=== PATIENT | male | born 1965 | race Hispanic/Latino ===

== ENCOUNTER 2022-07-24 09:57 | Outpatient (CLI) | payer SELFPAY | END 2022-07-24 09:58 | disposition home or self-care (01) | LOC: RAD 09:57 | PROVIDERS: ATTEND Nurse Practitioner Family | DX: M25.562 Pain in left knee (principal); M25.462 Effusion, left knee; M25.552 Pain in left hip; M87.9 Osteonecrosis, unspecified ==

== ENCOUNTER 2022-07-24 13:49 | Emergency (ER) | payer SELFPAY ==
[2022-07-24 15:08] LABS: #Monocytes 0.9 thou/uL (0.11-0.59); #Neutrophils 8.5 thou/uL (1.40-6.50); %Basophils 0.2 % (0.0-1.0); %Eosinophils 0.1 % (0.0-10.0); %Lymphocytes 13.5 % (21.0-51.0); %Monocytes 8.2 % (0.0-10.0); %Neutrophils 76.8 % (42.0-75.0); Hemoglobin 12.7 g/dL (14.0-18.0); Mean Corpuscular HGB CONC 33.5 g/dL (32.0-36.0); Mean Corpuscular Hemoglobin 29.1 pg (27.0-31.0); Mean Corpuscular Volume 86.9 fl (78.0-98.0); Mean Platelet Volume 10.7 fL (7.4-10.4); Platelet Count 200 10x3/uL (130-400); RBC Distribution Width 13.2 % (11.5-14.5); Red Blood Cell (RBC) Count 4.36 mill/uL (4.70-6.10); White Blood Cell (WBC) Count 11.1 10x3/uL (4.8-10.8)
[2022-07-24 15:40] LABS: Anion Gap 12 mmol/L (10-20); BUN (Urea Nitrogen) 19 mg/dL (8.4-25.7); Calc. Creatinine Clearance 0 mL/min (70-130); Calcium 8.6 mg/dL (7.8-10.44); Carbon Dioxide 22 mmol/L (22-29); Chloride 105 mmol/L (98-107); Estimated GFR 105; Glucose 146 mg/dL (70-105); Potassium 3.9 mmol/L (3.5-5.1); Sodium 135 mmol/L (136-145)
== END 2022-07-24 16:31 | disposition home or self-care (01) ==
LOC: ERS 13:49
DX: M87.9 Osteonecrosis, unspecified (principal); D72.829 Elevated white blood cell count, unspecified; F17.210 Nicotine dependence, cigarettes, uncomplicated
CPT/HCPCS: 36415; 80048; 85025; 99283

== ENCOUNTER 2022-11-01 15:32 | Inpatient (IN) | payer OTHER, SELFPAY ==
[~2022-11-01 15:32] MED LIST: Iopamidol-370 76% 500 ML MDV (1 ML CHARGE) ONE
[2022-11-01 16:04] LABS: #Neutrophils 9.8 thou/uL (1.40-6.50); %Basophils 0.2 % (0.0-1.0); %Eosinophils 0.3 % (0.0-10.0); %Monocytes 7.3 % (0.0-10.0); %Neutrophils 72.9 % (42.0-75.0); Hematocrit 39.7 % (42.0-52.0); Hemoglobin 13.2 g/dL (14.0-18.0); Mean Corpuscular HGB CONC 33.2 g/dL (32.0-36.0); Mean Corpuscular Hemoglobin 29.5 pg (27.0-31.0); Mean Corpuscular Volume 88.6 fl (78.0-98.0); Mean Platelet Volume 10.4 fL (7.4-10.4); Platelet Count 168 10x3/uL (130-400); RBC Distribution Width 13.2 % (11.5-14.5); Red Blood Cell (RBC) Count 4.48 mill/uL (4.70-6.10); White Blood Cell (WBC) Count 13.5 10x3/uL (4.8-10.8)
[2022-11-01 16:31] LABS: ALT (SGPT) 30 U/L (8-55); AST (SGOT) 17 U/L (5-34); Albumin 3.6 g/dL (3.5-5.0); Alkaline Phosphatase 52 U/L (40-110); Anion Gap 11 mmol/L (10-20); BUN (Urea Nitrogen) 20 mg/dL (8.4-25.7); Bilirubin, Total 0.5 mg/dL (0.2-1.2); Calc. Creatinine Clearance 0 mL/min (70-130); Calcium 8.4 mg/dL (7.8-10.44); Carbon Dioxide 25 mmol/L (22-29); Chloride 102 mmol/L (98-107); Estimated GFR 107; Globulin 2.5 g/dL (2.4-3.5); Glucose 107 mg/dL (70-105); Lipase 56 U/L (8-78); Potassium 4.1 mmol/L (3.5-5.1); Protein, Total 6.1 g/dL (6.0-8.3); Sodium 134 mmol/L (136-145)
[2022-11-01 16:35] LABS: Troponin I Less than 0.010 ng/mL (< 0.028)
[2022-11-01] MEDS ORDERED: Aspirin Chewable 81 MG TAB ONE (16:40)
[2022-11-01] MEDS ORDERED: Nitroglycerin 0.4 MG TAB 1 EACH ONE (16:40)
[2022-11-01 16:58] LABS: T4 5.92 ug/dL (4.87-11.72); Thyroid Stimulating Hormone 1.1404 uIU/mL (0.35-4.94)
[2022-11-01] MEDS ORDERED: fentaNYL 50 mcg/mL 1 mL Vial ONE (18:33)
[2022-11-01] MEDS ORDERED: Ondansetron PF 4 MG/2 ML Vial IVP PRN (21:23)
[2022-11-01] MEDS ORDERED: Ondansetron ODT 4 MG TAB PO PRN (21:23)
[2022-11-01] MEDS ORDERED: Nitroglycerin 0.4 MG TAB (25 Tab Bottle) SL PRN (21:23)
[2022-11-01] MEDS ORDERED: Acetaminophen 650 MG Suppository PR PRN (21:23)
[2022-11-01 22:17] VITALS: BMI 27.6
[2022-11-01] MEDS: Morphine 4 MG/ML VIAL SLOW IVP PRN (22:45)
[2022-11-01 23:52] LABS: Troponin I Less than 0.010 ng/mL (< 0.028)
[2022-11-02 05:16] LABS: #Eosinphils 0.1 thou/uL (0.0-0.7); #Monocytes 0.7 thou/uL (0.11-0.59); #Neutrophils 8.8 thou/uL (1.40-6.50); %Basophils 0.2 % (0.0-1.0); %Eosinophils 0.5 % (0.0-10.0); %Lymphocytes 13.2 % (21.0-51.0); %Monocytes 5.7 % (0.0-10.0); %Neutrophils 76.9 % (42.0-75.0); Hematocrit 36.7 % (42.0-52.0); Hemoglobin 12.1 g/dL (14.0-18.0); Mean Corpuscular Hemoglobin 29.7 pg (27.0-31.0); Mean Corpuscular Volume 90.2 fl (78.0-98.0); Mean Platelet Volume 10.8 fL (7.4-10.4); Platelet Count 145 10x3/uL (130-400); RBC Distribution Width 13.3 % (11.5-14.5); Red Blood Cell (RBC) Count 4.07 mill/uL (4.70-6.10); White Blood Cell (WBC) Count 11.5 10x3/uL (4.8-10.8)
[2022-11-02 05:41] LABS: Anion Gap 9 mmol/L (10-20); BUN (Urea Nitrogen) 13 mg/dL (8.4-25.7); Calc. Creatinine Clearance 148 mL/min (70-130); Calcium 8.1 mg/dL (7.8-10.44); Carbon Dioxide 28 mmol/L (22-29); Chloride 98 mmol/L (98-107); Estimated GFR 112; Glucose 106 mg/dL (70-105); Potassium 3.8 mmol/L (3.5-5.1); Sodium 131 mmol/L (136-145)
[2022-11-02] MEDS: Morphine 4 MG/ML VIAL SLOW IVP PRN ×3 (05:45→23:21)
[2022-11-02] MEDS: Aspirin Chewable 81 MG TAB PO SCH (09:06)
[2022-11-02] MEDS: Acetaminophen 325 MG TAB PO PRN (21:03)
[2022-11-03] MEDS ORDERED: ADENOSINE 60 MG/20 ML SDV ONE (09:06)
[2022-11-03] MEDS: Aspirin Chewable 81 MG TAB PO SCH (09:45)
[2022-11-03] MEDS: Acetaminophen 325 MG TAB PO PRN ×3 (09:46→23:13)
[2022-11-04] MEDS: Acetaminophen 325 MG TAB PO PRN (07:00)
[2022-11-04] MEDS ORDERED: Sodium Bicarbonate 2.5 MEQ/5 ML VIAL ONE (09:36)
[2022-11-04] MEDS: Aspirin Chewable 81 MG TAB PO SCH (11:06)
[2022-11-04 12:14] LABS: RBC Count-Automated (BF) 17572 /cu.mm; WBC/Nucleated-Auto (BF) 506 /cu.mm
[2022-11-04 12:32] LABS: BF Color Pink; Body Fluid Source Synovial Fluid; Clarity Hazy (Clear); Tube # EDTA
[2022-11-04 12:35] LABS: BF Segmented Neutrophils 19 %; Cell Count Non Hematic 62 %; Eosinophils 2 %; Lymphocytes 17 %
[2022-11-04 13:14] LABS: Synovial Fluid, Protein 3.7 g/dL (Not Available); Synovial Fluid, Uric Acid 4.5 mg/dL (Not Available)
[2022-11-04] MEDS ORDERED: HYDROcodone/Acetaminophen 5/325 mg Tablet PO SCH (14:45)
[2022-11-05] MEDS: HYDROcodone/Acetaminophen 5/325 mg Tablet PO PRN (05:32)
[2022-11-05] MEDS: Aspirin Chewable 81 MG TAB PO SCH (10:13)
[2022-11-05] MEDS: Acetaminophen 325 MG TAB PO PRN (10:13)
[2022-11-06] MEDS: HYDROcodone/Acetaminophen 5/325 mg Tablet PO PRN ×3 (02:35→16:28)
[2022-11-06 06:20] LABS: #Eosinphils 0.1 thou/uL (0.0-0.7); #Monocytes 0.7 thou/uL (0.11-0.59); #Neutrophils 3.6 thou/uL (1.40-6.50); %Basophils 0.2 % (0.0-1.0); %Eosinophils 1.5 % (0.0-10.0); %Lymphocytes 19.6 % (21.0-51.0); %Monocytes 12.5 % (0.0-10.0); %Neutrophils 65.1 % (42.0-75.0); Hematocrit 35.6 % (42.0-52.0); Hemoglobin 11.7 g/dL (14.0-18.0); Mean Corpuscular HGB CONC 32.9 g/dL (32.0-36.0); Mean Corpuscular Hemoglobin 29.7 pg (27.0-31.0); Mean Corpuscular Volume 90.4 fl (78.0-98.0); Mean Platelet Volume 10.2 fL (7.4-10.4); Platelet Count 131 10x3/uL (130-400); RBC Distribution Width 13.3 % (11.5-14.5); Red Blood Cell (RBC) Count 3.94 mill/uL (4.70-6.10); White Blood Cell (WBC) Count 5.5 10x3/uL (4.8-10.8)
[2022-11-06 06:44] LABS: Anion Gap 13 mmol/L (10-20); BUN (Urea Nitrogen) 11 mg/dL (8.4-25.7); CRP (Inflammatory) 3.69 mg/dL (= or < 0.5); Calc. Creatinine Clearance 137 mL/min (70-130); Calcium 8.8 mg/dL (7.8-10.44); Carbon Dioxide 23 mmol/L (22-29); Chloride 102 mmol/L (98-107); Estimated GFR 109; Glucose 129 mg/dL (70-105); Potassium 3.6 mmol/L (3.5-5.1); Sodium 134 mmol/L (136-145)
[2022-11-06] MEDS: Aspirin Chewable 81 MG TAB PO SCH (08:38)
[2022-11-06] MEDS ORDERED: Potassium Chloride 20 MEQ TAB PO SCH (09:00)
[2022-11-06] MEDS ORDERED: CEFAZOLIN 2 GM in Sodium Chloride 0.9% 100 ML IVPB SCH (12:45)
[2022-11-07] MEDS: HYDROcodone/Acetaminophen 5/325 mg Tablet PO PRN ×2 (00:09→08:41)
[2022-11-07 06:04] LABS: Anion Gap 12 mmol/L (10-20); BUN (Urea Nitrogen) 10 mg/dL (8.4-25.7); CRP (Inflammatory) 3.45 mg/dL (= or < 0.5); Calc. Creatinine Clearance 133 mL/min (70-130); Calcium 8.6 mg/dL (7.8-10.44); Carbon Dioxide 23 mmol/L (22-29); Chloride 102 mmol/L (98-107); Estimated GFR 108; Glucose 108 mg/dL (70-105); Potassium 3.9 mmol/L (3.5-5.1); Sodium 133 mmol/L (136-145)
[2022-11-07] MEDS: Aspirin Chewable 81 MG TAB PO SCH (08:40)
[2022-11-07] MEDS ORDERED: Midazolam HCl 2 mg/2 ml Vial ONE (10:35)
[2022-11-07] MEDS ORDERED: fentaNYL 50 mcg/mL 1 mL Vial ONE ×4 (10:35→14:06)
[2022-11-07] MEDS ORDERED: Fentanyl/Bupivacaine 100 ML EPIDURAL SCH (10:45)
[2022-11-07] MEDS ORDERED: Naloxone HCl 0.4 mg/ml Vial IVP PRN (10:45)
[2022-11-07] MEDS ORDERED: diphenhydrAMINE 50 MG/ML VIAL IM PRN ×2 (10:45→13:10)
[2022-11-07] MEDS ORDERED: Moisturizing Cream (Eucerin) 113 GM JAR TOP PRN (10:45)
[2022-11-07] MEDS ORDERED: diphenhydrAMINE 50 MG/ML VIAL IVP PRN ×2 (10:45→13:10)
[2022-11-07] MEDS ORDERED: diphenhydrAMINE 25 MG CAP PO PRN ×2 (10:45→13:10)
[2022-11-07] MEDS ORDERED: traMADol HCl 50 MG TAB PO PRN ×2 (10:45)
[2022-11-07] MEDS ORDERED: HYDROcodone/Acetaminophen 5/325 mg Tablet PO PRN (10:45)
[2022-11-07] MEDS ORDERED: Zolpidem Tartrate 5 MG TAB PO PRN (10:45)
[2022-11-07] MEDS ORDERED: Promethazine HCl 25 MG SUPP PR PRN (10:45)
[2022-11-07] MEDS ORDERED: Promethazine HCl 25 MG/ML VIAL IM PRN ×2 (10:45→13:10)
[2022-11-07] MEDS ORDERED: Naloxone HCl 0.4 mg/ml Vial IV PRN ×2 (10:45→13:10)
[2022-11-07] MEDS ORDERED: Tranexamic Acid 1,000 MG/10 ML VIAL ONE (10:51)
[2022-11-07] MEDS ORDERED: Vancomycin (BATCH) 1.5 GRAM/300 ML BAG ONE (10:51)
[2022-11-07] MEDS ORDERED: Sodium Chloride 0.9% 100 ML ONE ×2 (10:51→10:56)
[2022-11-07] MEDS ORDERED: fentaNYL PF 100 MCG/2 ML SYRINGE ONE (10:53)
[2022-11-07] MEDS ORDERED: CEFAZOLIN 2 GM VIAL ONE (10:56)
[2022-11-07] MEDS ORDERED: Dexamethasone 20 MG/5 ML VIAL ONE (11:05)
[2022-11-07] MEDS ORDERED: PHENYLEPHRINE-NS 100 MCG/ML 10 ML SYRINGE ONE (11:05)
[2022-11-07] MEDS ORDERED: PROPOFOL 200 MG/20 ML VIAL ONE (11:05)
[2022-11-07] MEDS ORDERED: Lidocaine 1% PF 5 ML VIAL ONE (11:05)
[2022-11-07] MEDS ORDERED: Rocuronium Bromide 10 MG/ML (10ML VIAL) ONE (11:05)
[2022-11-07] MEDS ORDERED: Ondansetron PF 4 MG/2 ML Vial ONE (11:05)
[2022-11-07] MEDS ORDERED: Ketorolac Tromethamine 30 MG/ML VIAL IVP SCH (12:00)
[2022-11-07] MEDS ORDERED: SUGAMMADEX SODIUM 200 MG/2 ML VIAL ONE (12:51)
[2022-11-07] MEDS ORDERED: Ondansetron PF 4 MG/2 ML Vial IVP PRN (13:10)
[2022-11-07] MEDS ORDERED: FENTANYL 500 MCG/10 ML VIAL 2,000 MCG in Sodium Chloride 0.9% 60 ML IV PRN (13:10)
[2022-11-07] MEDS ORDERED: ACTIVE PCA FS PRN (13:15)
[2022-11-07] MEDS ORDERED: Acetaminophen 325 MG TAB PO PRN (13:20)
[2022-11-07] MEDS ORDERED: HYDROcodone/Acetaminophen 10/325 mg Tablet PO PRN ×2 (13:20)
[2022-11-07] MEDS ORDERED: HYDROmorphone 0.5 MG/0.5 ML SYRINGE ONE (13:30)
[2022-11-07] MEDS: valACYclovir 500 MG TAB PO SCH ×2 (14:45→20:23)
[2022-11-07] MEDS: Sodium Chloride 0.9% 1,000 ML IV SCH (14:46)
[2022-11-07] MEDS: Ketorolac Tromethamine 30 MG/ML VIAL IVP SCH (18:24)
[2022-11-07] MEDS: CEFAZOLIN 2 GM in Sodium Chloride 0.9% 100 ML IVPB SCH (18:28)
[2022-11-07] MEDS: Ferrous Gluconate 324 MG TAB PO SCH (20:22)
[2022-11-07] MEDS: Senokot S 8.6-50 MG TAB PO SCH (20:23)
[2022-11-07] MEDS ORDERED: Aspirin 81 mg Enteric Coated Tablet PO SCH (21:00)
[2022-11-08] MEDS: Ketorolac Tromethamine 30 MG/ML VIAL IVP SCH ×5 (00:04→23:46)
[2022-11-08] MEDS: Sodium Chloride 0.9% 1,000 ML IV SCH ×3 (00:06→20:21)
[2022-11-08] MEDS: CEFAZOLIN 2 GM in Sodium Chloride 0.9% 100 ML IVPB SCH (03:09)
[2022-11-08 05:58] LABS: Hemoglobin 10.4 g/dL (14.0-18.0); Mean Corpuscular HGB CONC 33.5 g/dL (32.0-36.0); Mean Corpuscular Hemoglobin 29.6 pg (27.0-31.0); Mean Corpuscular Volume 88.3 fl (78.0-98.0); Mean Platelet Volume 10.4 fL (7.4-10.4); Platelet Count 133 10x3/uL (130-400); Red Blood Cell (RBC) Count 3.51 mill/uL (4.70-6.10); White Blood Cell (WBC) Count 10.7 10x3/uL (4.8-10.8)
[2022-11-08 05:59] LABS: #Neutrophils 8.8 thou/uL (1.40-6.50); %Basophils 0.1 % (0.0-1.0); %Lymphocytes 10.8 % (21.0-51.0); %Monocytes 9.1 % (0.0-10.0); %Neutrophils 79.4 % (42.0-75.0); Hematocrit 30.3 % (42.0-52.0); Mean Corpuscular Hemoglobin 29.4 pg (27.0-31.0); Mean Corpuscular Volume 89.1 fl (78.0-98.0); Mean Platelet Volume 10.4 fL (7.4-10.4); Platelet Count 133 10x3/uL (130-400); RBC Distribution Width 12.9 % (11.5-14.5); White Blood Cell (WBC) Count 11.1 10x3/uL (4.8-10.8)
[2022-11-08 06:18] LABS: Anion Gap 1 mmol/L (10-20); BUN (Urea Nitrogen) 9 mg/dL (8.4-25.7); Calc. Creatinine Clearance 129 mL/min (70-130); Calcium 8.5 mg/dL (7.8-10.44); Carbon Dioxide 20 mmol/L (22-29); Chloride 111 mmol/L (98-107); Estimated GFR 107; Glucose 192 mg/dL (70-105); Potassium 3.7 mmol/L (3.5-5.1); Sodium 128 mmol/L (136-145)
[2022-11-08] MEDS: Multivitamin W/ Minerals 1 TAB PO SCH (09:24)
[2022-11-08] MEDS: Senokot S 8.6-50 MG TAB PO SCH ×2 (09:24→20:20)
[2022-11-08] MEDS: Aspirin Chewable 81 MG TAB PO SCH (09:24)
[2022-11-08] MEDS: Ferrous Gluconate 324 MG TAB PO SCH ×2 (09:24→20:20)
[2022-11-08] MEDS: valACYclovir 500 MG TAB PO SCH ×3 (09:25→20:20)
[2022-11-08] MEDS: HYDROcodone/Acetaminophen 5/325 mg Tablet PO PRN (16:38)
[2022-11-09 05:38] LABS: #Eosinphils 0.1 thou/uL (0.0-0.7); #Monocytes 0.9 thou/uL (0.11-0.59); #Neutrophils 5.8 thou/uL (1.40-6.50); %Basophils 0.2 % (0.0-1.0); %Eosinophils 0.7 % (0.0-10.0); %Lymphocytes 21.2 % (21.0-51.0); %Monocytes 10.6 % (0.0-10.0); %Neutrophils 65.9 % (42.0-75.0); Hematocrit 27.9 % (42.0-52.0); Hemoglobin 9.1 g/dL (14.0-18.0); Mean Corpuscular HGB CONC 32.6 g/dL (32.0-36.0); Mean Corpuscular Hemoglobin 29.1 pg (27.0-31.0); Mean Corpuscular Volume 89.1 fl (78.0-98.0); Mean Platelet Volume 10.5 fL (7.4-10.4); Platelet Count 136 10x3/uL (130-400); RBC Distribution Width 13.6 % (11.5-14.5); Red Blood Cell (RBC) Count 3.13 mill/uL (4.70-6.10); White Blood Cell (WBC) Count 8.9 10x3/uL (4.8-10.8)
[2022-11-09] MEDS: Ketorolac Tromethamine 30 MG/ML VIAL IVP SCH ×2 (05:39→12:53)
[2022-11-09 06:03] LABS: Anion Gap 10 mmol/L (10-20); BUN (Urea Nitrogen) 13 mg/dL (8.4-25.7); Calc. Creatinine Clearance 131 mL/min (70-130); Calcium 8.1 mg/dL (7.8-10.44); Carbon Dioxide 24 mmol/L (22-29); Chloride 104 mmol/L (98-107); Estimated GFR 108; Glucose 120 mg/dL (70-105); Potassium 3.7 mmol/L (3.5-5.1); Sodium 134 mmol/L (136-145)
[2022-11-09] MEDS: Sodium Chloride 0.9% 1,000 ML IV SCH (08:41)
[2022-11-09] MEDS: HYDROcodone/Acetaminophen 5/325 mg Tablet PO PRN (10:06)
[2022-11-09] MEDS: Aspirin Chewable 81 MG TAB PO SCH (10:07)
[2022-11-09] MEDS: Multivitamin W/ Minerals 1 TAB PO SCH (10:07)
[2022-11-09] MEDS: valACYclovir 500 MG TAB PO SCH ×2 (10:07→16:21)
[2022-11-09] MEDS: Ferrous Gluconate 324 MG TAB PO SCH (10:07)
[2022-11-09] MEDS: Senokot S 8.6-50 MG TAB PO SCH (10:08)
[2022-11-09 15:41] VITALS: BP 153/87; TEMP 98.1
== END 2022-11-09 19:35 | disposition home or self-care (01) | DRG 470 ==
LOC: ERS 15:32 → 2SW 20:27 → OBSVTOIN 11-02 14:23 → SURG A 11-03 23:52
PROVIDERS: ADMIT Student in an Organized Health Care Education/Training Program; ATTEND Family Medicine
PROC: 0S9B3ZX Drainage of Left Hip Joint, Percutaneous Approach, Diagnostic (ICD-10-PCS; 2022-11-04)
PROC: 0SRB0JZ Replacement of Left Hip Joint with Synthetic Substitute, Open Approach (ICD-10-PCS; principal; 2022-11-07)
PROC: 0QSM04Z Reposition Left Tarsal with Internal Fixation Device, Open Approach (ICD-10-PCS; 2022-11-07)
DX: M87.852 Other osteonecrosis, left femur (principal); B02.8 Zoster with other complications; M84.659 Pathological fracture in other disease, hip, unspecified; I10 Essential (primary) hypertension; M25.552 Pain in left hip; G89.29 Other chronic pain; M25.452 Effusion, left hip; R60.0 Localized edema; Z98.890 Other specified postprocedural states; F10.20 Alcohol dependence, uncomplicated; R07.89 Other chest pain; X58.XXXA Exposure to other specified factors, initial encounter
CPT/HCPCS: 36415; 70491; 71045; 72170; 72192; 76705; 77002; 77012; 78452; 80048; 80053; 82945; 83690; 83735; 83880; 84157; 84436; 84443; 84484; 84560; 85025; 85060; 85652; 86140; 87070; 87205; 89051; 89060; 93005; 93017; 94760; 96374; 96375; 96376; A9500; C1776; G0378; J0153; J1100; J1170; J1885; J2250; J2270; J2405; J2704; J3010; J3370; J3490; J7050; Q9967

== ENCOUNTER 2023-01-09 09:54 | Outpatient (CLI) | payer OTHER | END 2023-01-09 09:55 | disposition home or self-care (01) | LOC: BICRAD 09:54 | PROVIDERS: ATTEND Internal Medicine | DX: Z02.71 Encounter for disability determination (principal); Z96.642 Presence of left artificial hip joint ==